=== PATIENT | male | born 1935 | race Caucasian/White ===

== ENCOUNTER → 2022-02-24 10:06 | Outpatient (CLI) | payer OTHER, SELFPAY ==
--- NOTE | ~2022-02-24 | XR_ITS ---
XR chest 2V DATE: 02/24/2022 10:33 INDICATION: Shortness of breath TECHNIQUE: PA and lateral views COMPARISON: 06/04/2018 two-view chest 09/05/2018 CT chest high resolution scan FINDINGS: Bilateral hyperinflation, consistent with COPD. There is mild right lower lobe infiltrate, atelectasis and/or scarring, improved mildly since 06/04/20 18. No interval active infiltrate or consolidation, pleural effusion or pulmonary vascular congestion or pneumothorax. There is thoracic aortic arch calcification. No hilar or mediastinal enlargement. Diffuse idiopathic skeletal hyperostosis of the thoracic spine IMPRESSION: Mild interval improvement of right lower lobe infiltrate, atelectasis and/or scarring Bilateral hyperinflation consistent with COPD Reviewed, dictated and finalized at location B. IMPRESSION: Mild interval improvement of right lower lobe infiltrate, atelectas is and/or scarring Bilateral hyperinflation consistent with COPD
== END ==
PROVIDERS: PCP Physician Assistant; Visit Provider Physician Assistant
DX: R06.02 Shortness of breath (principal); R91.8 Other nonspecific abnormal finding of lung field
CPT/HCPCS: 71046

== ENCOUNTER → 2022-03-03 10:45 | Outpatient (CLI) | payer OTHER, SELFPAY ==
--- NOTE | ~2022-03-03 | MR_ITS ---
EXAMINATION: MR brain/brain stem wo con DATE: 03/03/2022 11:20 INDICATION: Other symptoms and signs involving cognitive function. TECHNIQUE: Magnetic resonance imaging (MRI) of the brain and brainstem was performed without intraven ous contrast. COMPARISON: Head CT 09/20/2016 FINDINGS: There is diffuse brain volume loss. There are scattered areas of nonspecific increased T2-w eighted signal intensity in the cerebral white matter. The ventricles are normal in size. There is mu cosal thickening in the paranasal sinuses including complete opacification of the maxillary sinuses a nd right frontal sinus. There are likely changes of ocular lens replacement surgeries. IMPRESSION: 1. Normal aging brain. Reviewed, dictated and finalized at location A. IMPRESSION: 1. Normal aging brain.
== END ==
PROVIDERS: PCP Family Medicine Adolescent Medicine; Visit Provider Physician Assistant
DX: R41.89 Other symptoms and signs involving cognitive functions and awareness (principal)
CPT/HCPCS: 70551

== ENCOUNTER 2022-03-08 10:32 | Outpatient (CLI) | payer OTHER, SELFPAY ==
--- NOTE | ~2022-03-08 | XR_ITS ---
MODIFIED ESOPHAGRAM HISTORY: Dysphagia. TECHNIQUE: Modified barium esophagram was performed by speech pathologist under radiologist fluorosco pic guidance. This was recorded on tape. The exam was reviewed on 03/08/2022 12:38 CDT. The DAP for this procedure was 1.85 Gycm2. Fluoroscopy time is 1.9 minutes. FINDINGS: Lateral projection of the cervical spine demonstrates multiple ventral bulky osteophytes. There is normal swallowing function during oral stage. During pharyngeal stage there is reduced kelly ngeal elevation, reduced tongue base retraction, vallecular and piriform sinus residue as well as lar yngeal penetration and aspiration.. IMPRESSION: 1: Moderate laryngeal penetration with aspiration. 2: Please refer to speech pathologist report for additional detail. Reviewed, dictated and finalized at location A.
--- NOTE | 2022-03-09 16:18 | STOPEVAL ---
MODIFIED BARIUM SWALLOW EVALUATION: Thank you for referring Adeel Arellano to [facility].? Attending Provider: Maria Guadalupe Brewer PA-C Outpatient Past Medical History Past Medical History Source of Past Medical History Patient Evaluation Information Problem Diagnosis dysphagia Onset per pt 10-15 years ago Additional Evaluation Detail Pt reported his chief complaint is food gets stuck in his throat with choking. Pt reported it began 10-15 years ago. He reported he was previously tested via modified barium swallow here at [facility] 10-15 years ago;however, upon further review of pt's electronic record, it was noted the previous modified barium swallow was completed in 2017. At that time the pt exhibited the following: June Evaluation Results: Impressions: Oral preparatory stage disorders: none. Oral stage disorders: none. During the pharyngeal phase, the following disorders were noted: poor tongue base retraction, cervical osteophytes, & reduced laryngeal elevation. Cervical/ esophageal disorders were not present. Overall, trace laryngeal penetration was present. No aspiration occurred, but risk is present. Laryngeal sensitivity was present as indicated by multiple swallows but pt did not consistently clear throat or cough upon instances of the laryngeal penetration. Effective postures attempted during the study were: chin tucked (flexed) & head rotated left. Currently, pt states he continues to utilize the same postures while eating/drinking Subjective Information Pt was pleasant and alert but Query Text:As Reported By Patient/ appeared to exhibited Family difficulty providing accurate
== END 2022-03-08 10:33 | disposition home or self-care (01) ==
PROVIDERS: PCP Family Medicine Adolescent Medicine; Visit Provider Physician Assistant
DX: R13.10 Dysphagia, unspecified (principal)
CPT/HCPCS: 92611

== ENCOUNTER → 2022-06-08 09:04 | Outpatient (CLI) | payer OTHER, SELFPAY ==
--- NOTE | ~2022-06-08 | XR_ITS ---
XR knee LT 2V 06/08/2022 09:15 Indication: Left knee pain Procedure: 2 views left knee Comparison: No prior studies for comparison. Findings: No fracture or traumatic malalignment. No significant joint effusion. There is mild patello femoral compartment osteoarthritis. No foreign bodies. Impression: 1: No acute fracture. Reviewed, dictated and finalized at location A. Impression: 1: No acute fracture.
== END ==
PROVIDERS: PCP Family Medicine Adolescent Medicine; Visit Provider Physician Assistant
DX: M25.562 Pain in left knee (principal)
CPT/HCPCS: 73560

== ENCOUNTER 2022-10-14 10:30 | Outpatient (CLI) | payer OTHER, SELFPAY ==
--- NOTE | ~2022-10-14 | XR_ITS ---
EXAMINATION: BONE SURVEY/METASTATIC SURVEY DATE: 10/14/2022 INDICATION: Monoclonal gammopathy of undetermined significance TECHNIQUE: A skeletal survey was performed including AP views of the chest, abdomen and pelvis; AP an d lateral/lateral swimmers views of the cervical, thoracic and lumbar spine; AP and lateral views of the skull, and AP and lateral views of the appendicular skeleton excluding the hands and feet. COMPARISON: Chest radiograph dated 02/24/2022, chest CT dated 09/05/[address] abdomen and pelvis rosario ed 09/13/2012 FINDINGS: Small round lucent lesion in the left parietal bone seen only on the AP projection which can be seen dating back to CT dated 09/20/2016 with internal increased T1 signal on MRI dated 03/03/2022 most consi stent with a small hemangioma. No additional small higher less well-defined or more irregular shaped lucent calvarial lesion seen on the frontal projection. Correspond to combination of vascular channel s and arachnoid granulations on prior CT. No other suspicious lytic bone lesions in the axial or appe ndicular skeleton. A couple small chronic sclerotic bone islands in the pelvis and at the intratrochanteric right femur. Mild to moderate cervical and thoracic and mild lumbar spondylosis. There are bridging nearly bridgi ng osteophytes at multiple levels in the cervical and thoracic spine were consistent with diffuse idi opathic skeletal hyperostosis (DISH). Chronic mild anterior wedging at T7 and T8. Again seen are few small calcified pulmonary nodules in the bilateral upper lungs along with calcifie d left hilar and mediastinal lymph nodes consistent with old granulomatous disease. No other airspace opacities, pulmonary edema, pleural effusion or pneumothorax. Heart size is normal. Cholecystectomy clips in right upper quadrant. Prostatic calcifications. IMPRESSION: 1. No lytic bone lesions suspicious for multiple myeloma. Reviewed, dictated and finalized at location A. CLERK
== END 2022-10-14 10:31 | disposition home or self-care (01) ==
PROVIDERS: PCP Family Medicine Adolescent Medicine; Visit Provider Internal Medicine Hematology & Oncology
DX: D47.2 Monoclonal gammopathy (principal)
CPT/HCPCS: 77075

== ENCOUNTER → 2023-01-06 10:47 | Outpatient (CLI) | payer OTHER, SELFPAY ==
--- NOTE | ~2023-01-06 | CT_ITS ---
CT of the Abdomen and Pelvis: Indication: Abdominal pain, weight loss Technique: 2.5 mm axial scans were obtained through the abdomen and pelvis following intravenous adm inistration of 100 cc of Omnipaque 350. Dose reduction technique was used on this scan by utilizing a utomated exposure control and iterative reconstruction technique. The dose-length product (DLP) was 6 35.69 mGy-cm. COMPARISON: 09/13/2012 Findings: There are several peripheral right basilar pulmonary nodules, largest measuring 1.1 cm (axi al image 2), with nearby right basilar scarring.. The liver, spleen, pancreas, adrenals and kidneys are within normal limits. Cholecystectomy clips not ed. There are atherosclerotic calcifications of the aorta. No lymphadenopathy. No bowel obstruction or bowel wall thickening. There is no evidence to suggest acute appendicitis. Images through the pelvis were performed. Urinary bladder unremarkable. Prostate gland is enlarged. N o ascites. Impression: Several right basilar pulmonary nodules, largest measuring 1.1 cm, with adjacent scarring. This could reflect postinflammatory change or scarring, however these nodules are indeterminate. Based upon Fle ischner Society criteria, given a 1.1 cm nodule, consider 3 month follow-up CT versus PET/CT or attem pted tissue sampling. Also consider dedicated chest CT to more completely evaluate the thorax. Reviewed, dictated and finalized at location M. Impression: Several right basilar pulmonary nodules, largest measuring 1.1 cm, with adjacen t scarring. This could reflect postinflammatory change or scarring, however the se nodules are indeterminate. Based upon Fleischner Society criteria, given a 1 .1 cm nodule, consider 3 month follow-up CT versus PET/CT or attempted tissue s ampling. Also consider dedicated chest CT to more completely evaluate the thora x.
[2023-01-06 11:07] LABS: Estimated Glomerular Filt Rate > 60
== END ==
PROVIDERS: PCP Family Medicine Adolescent Medicine; Visit Provider Physician Assistant
DX: R10.13 Epigastric pain (principal); R63.4 Abnormal weight loss; R91.8 Other nonspecific abnormal finding of lung field
CPT/HCPCS: 74177; Q9967

== ENCOUNTER 2023-02-03 02:44 | Day surgery (SDC) | payer OTHER, SELFPAY ==
[2023-01-25 14:15] VITALS: BMI 25.1
[2023-02-03 09:25] VITALS: BP 135/68; PULSE 65; RESP 18; TEMP 36.6; O2SAT 99; BMI 25.5
[2023-02-03] MEDS: LACTATED RINGERS 1,000 ML 150 ML IV CONT (09:57)
[2023-02-03 10:01] LABS: Glucose Point of Care 128 mg/dl (65-105)
--- NOTE | 2023-02-03 10:11 | WPDANESEPPF ---
Anes - Initial Pre Proc Eval Procedure: Operation Date: 02/03/23 10:45 Proposed Procedures p Esophagogastroduodenoscopy - Eitan Apodaca MD Date/Time: 02/03/23 10:11 Surgeon: Eitan Apodaca MD Pre Op Diagnosis: dysphagia, weightloss Patient Data Age: 87 Gender: M Height: 1.75 m Weight: 78.5 kg Last Vital Signs Temp 97.8 F 02/03/23 09:25 Pulse 65 02/03/23 09:25 Resp 18 02/03/23 09:25 BP 135/68 02/03/23 09:25 Pulse Ox 99 02/03/23 09:25 O2 Del Method Room Air 02/03/23 09:25 Allergies Allergy/AdvReac Type Severity Reaction Status Date / Time quinidine Allergy Unknown Unknown Verified 01/25/23 14:13 quinine Allergy Unknown Unknown Verified 01/25/23 14:13 donepezil AdvReac Intermediate Other Verified 01/25/23 14:13 memantine AdvReac Intermediate Drowsy Verified 01/25/23 14:13 [id number] Reductase AdvReac Mild leg pains Verified 01/25/23 14:13 Inhibitor Home Medications Medication Instructions Recorded Confirmed Type albuterol sulfate 2.5 mg/3 mL 2.5 mg (3 mL) inhalation QID PRN 06/10/22 01/25/23 Rx (0.083 %) solution for nebulization shortness of breath or wheezing #360 mL lisinopril 20 mg tablet See Rx Instructions .Route 07/11/22 01/25/23 Rx .COMPLEX #90 tabs propranolol 40 mg tablet 80 mg PO DAILY #180 tabs 09/16/22 01/25/23 Rx spironolactone 25 mg tablet 25 mg PO DAILY #90 tabs 09/19/22 01/25/23 Rx metformin 500 mg tablet 1,000 mg PO BID #360 tabs 11/14/22 01/25/23 Rx ipratropium bromide 42 mcg (0.06 See Rx Instructions .Route 11/24/22 01/25/23 Rx %) nasal spray .COMPLEX #15 mL glimepiride 2 mg tablet See Rx Instructions .Route 12/12/22 01/25/23 Rx .COMPLEX #90 tabs gabapentin 300 mg capsule See Rx Instructions .Route 12/21/22 01/25/23 Rx .COMPLEX #360 caps albuterol sulfate 90 mcg/actuation 2 inh inhalation Q4H PRN shortness 01/08/23 01/25/23 Rx aerosol inhaler (Ventolin HFA) of breath or wheezing #18 grams diltiazem HCl 90 mg tablet 90 mg PO BID #180 tabs 01/08/23 01/25/23 Rx famotidine 10 mg tablet 10 mg PO DAILY 01/11/23 01/25/23 History pantoprazole 40 mg tablet,delayed 40 mg PO BID 01/25/23 01/25/23 History release (Protonix) Laboratory Tests 02/03/23 09:48 POC Capillary Glucose 128 mg/dl H mg/dl (65-105) Patient hx anesthesia problems: none Family hx anesthesia problems: none Results Review: All pre-operative results and documents have been reviewed as part of the pre-operative evaluation. [facility] Past Medical History Medical History (Updated 01/11/23 @ 16:15 by HUI Vogel) Abdominal pain Change in voice Diarrhea Dysphagia TIA (transient ischemic attack) Surgical History Surgical History History of back surgery X-2 History of hernia repair Status post arthroscopic surgery of left knee Family History Family History Sibling Hypertension Acute myocardial infarction Mother Patient's mother is , Onset Age: 57 Heart disease CHF (congestive heart failure) Family history of obesity Father Dementia Cerebrovascular accident Other Diabetes mellitus Social History Social History Years smoked: 15 Smoking status: Former smoker Tobacco type: cigarettes Second hand tobacco smoke exposure: No Smoking end date: 10/16/69 Alcohol intake: current Drinks per week: 7 Substance use: never Substance use type: does not use Living arrangements: with family Occupation/Education: retired Gender identity (if verbalized by the patient): Male Sexual Orientation (if Verbalized by the Patient): Straight or Heterosexual Spiritual care concerns: No Agree to blood products: Yes Anes - Eval Final PreProcedure Day of Procedure 04/21/23 10:11 Patient weight: normal Heart: regul
--- NOTE | 2023-02-03 10:28 | P.HPUP_ITS ---
History and Physical Update Update Date/Time: 02/03/23 10:28 Patient continues to complain of right throat discomfort along with difficulty swallowing. If EGD negative then ENT evaluation would be indicated. History and Physical has been reviewed, including an updated exam of the patie nt. There are NO changes in the patient's condition. Risks, benefits, and alternatives have been discussed and questions answered. Patient agrees to proceed with procedure.
[2023-02-03 10:42] VITALS: BP 159/76; PULSE 66; RESP 20; O2SAT 100
[2023-02-03 10:52] VITALS: BP 142/74; PULSE 64; RESP 12; O2SAT 100
[2023-02-03 11:02] VITALS: BP 129/72; PULSE 67; RESP 14; O2SAT 100
== END 2023-02-03 11:22 | disposition home or self-care (01) ==
PROVIDERS: PCP Physician Assistant; Visit Provider Internal Medicine Gastroenterology
PROC: 0DJ08ZZ Inspection of Upper Intestinal Tract, Via Natural or Artificial Opening Endoscopic (ICD-10-PCS; CPT 43235; principal; 2023-02-03 10:45)
DX: Q39.4 Esophageal web (principal); K21.9 Gastro-esophageal reflux disease without esophagitis; R63.4 Abnormal weight loss; R10.9 Unspecified abdominal pain; K58.0 Irritable bowel syndrome with diarrhea; I10 Essential (primary) hypertension; E11.9 Type 2 diabetes mellitus without complications; F03.90 Unspecified dementia, unspecified severity, without behavioral disturbance, psychotic disturbance, mood disturbance, and anxiety; Z79.51 Long term (current) use of inhaled steroids; Z79.84 Long term (current) use of oral hypoglycemic drugs; Z86.73 Personal history of transient ischemic attack (TIA), and cerebral infarction without residual deficits; Z87.891 Personal history of nicotine dependence; Z68.25 Body mass index [BMI] 25.0-25.9, adult
CPT/HCPCS: 43450; 43235; 82948; J2704; J7120

== ENCOUNTER → 2023-04-21 10:39 | Outpatient (CLI) | payer OTHER, SELFPAY ==
--- NOTE | ~2023-04-21 | CT_ITS ---
EXAMINATION:CT diagnostic chest w con DATE: 04/21/2023 11:21 INDICATION: Lung nodule. TECHNIQUE: Computed tomography (CT) of the chest was performed with 75 mL Omnipaque 350 intravenous c ontrast. Automated exposure control and iterative reconstruction technique were employed. The dose-le ngth product (DLP) was 296.67 mGy-cm. COMPARISON: Chest CT 09/05/2018, CT abdomen and pelvis 01/02/2023 FINDINGS: There is mild scarring at the lung apices. Calcified bilateral pulmonary nodules and calcif ied mediastinal lymph nodes are consistent with old granulomatous disease. There is minimal atelectas is bilaterally. There are a few scattered nodules in right lung measuring up to 10 mm. There is mucou s plugging in basilar right lower lobe. No pleural effusion. The heart size is normal. There are lizzy nary artery calcifications. No pericardial effusion. There is bilateral gynecomastia. Calcifications in the spleen are consistent with old granulomatous disease. There are changes of cholecystectomy. Th ere are bridging endplate osteophytes at multiple levels in the spine, consistent with diffuse idiopa thic skeletal hyperostosis (DISH). IMPRESSION: 1. Chronic right lung nodules with improvement from 09/05/2018, consistent with granulomatous disease . Reviewed, dictated and finalized at location A. IMPRESSION: 1. Chronic right lung nodules with improvement from 09/05/2018, consistent with granulomatous disease.
[2023-04-21 11:03] LABS: Estimated Glomerular Filt Rate > 60
== END ==
PROVIDERS: PCP Internal Medicine Hematology & Oncology; Visit Provider Internal Medicine Hematology & Oncology
DX: R91.1 Solitary pulmonary nodule (principal); R91.8 Other nonspecific abnormal finding of lung field
CPT/HCPCS: 71260; Q9967

== ENCOUNTER → 2023-04-21 10:43 | Outpatient (CLI) | payer OTHER, SELFPAY ==
--- NOTE | ~2023-04-21 | XR_ITS ---
EXAMINATION: XR hip LT min 2V DATE: 04/21/2023 11:21 INDICATION: Left hip pain TECHNIQUE: Anteroposterior and frog-leg lateral views of the left hip were obtained. COMPARISON: None. FINDINGS: Alignment is normal. No fracture or suspected avascular necrosis. Subtle chondrocalcinosis along the left femoral head. Mild left hip osteoarthritis. Ankylosis across portions of the left sacroiliac pinky nt. Prostatic calcifications. IMPRESSION: 1. Mild chondrocalcinosis and mild osteoarthritis at the left hip. Reviewed, dictated and finalized at location B.
== END ==
PROVIDERS: PCP Family Medicine Adolescent Medicine; Visit Provider Nurse Practitioner Family
DX: M16.12 Unilateral primary osteoarthritis, left hip (principal)
CPT/HCPCS: 73502

== ENCOUNTER 2023-05-02 14:29 | Outpatient (CLI) | payer OTHER, SELFPAY ==
[2023-05-02 14:39] LABS: Basophils Percent Auto 0.3 % (0.2-1.2); Eosinophils Absolute Auto 0.1 K/mm3 (0-0.3); Eosinophils Percent Auto 1.4 % (0-4.4); Hematocrit 37.5 % (42.0-52.0); Hemoglobin 12.8 g/dL (14.0-18.0); Immature Granulocyte Absolute 0.05 K/mm3 (0.00-0.031); Immature Granulocyte Percent A 0.5 % (0-0.5); Lymphocytes Absolute Auto 1.38 K/mm3 (0.9-3.2); Lymphocytes Percent Auto 14.5 % (18.3-44.2); Mean Corpuscular HGB Conc 34.1 g/dl (32-36); Mean Corpuscular Hemoglobin 32.7 pg (26-34); Mean Corpuscular Volume 95.7 fl (80-100); Mean Platelet Volume 9.4 fl (7.4-10.4); Monocytes Absolute Auto 0.8 K/mm3 (0.1-0.6); Monocytes Percent Auto 8.5 % (2.6-8.5); Neutrophils Absolute Auto 7.1 K/mm3 (1.3-6.7); Neutrophils Percent Auto 74.8 % (45.5-73.1); Platelet Count Result 263 k/mm3 (150-375); Red Blood Count 3.92 M/mm3 (4.6-6.20); Red Cell Distribution Width 12.2 % (11.5-14.5); White Blood Count 9.5 K/mm3 (4.5-10.0)
[2023-05-02 14:44] LABS: Blood Urea Nitrogen 22 mg/dL (8-26); Carbon Dioxide 27 mmol/L (22-30); Chloride 93 mmol/L (98-109); Estimated Glomerular Filt Rate > 60; Glucose 165 mg/dL (70-105); Ionized Calcium (POC) 1.22 mmol/L (1.11-1.31); Potassium 4.7 mmol/L (3.5-4.9); Sodium 131 mmol/L (138-146)
[2023-05-02 16:46] LABS: Alanine Aminotransferase 24 U/L (6-50); Albumin Level 4.7 g/dL (3.5-5.1); Alkaline Phosphatase 77 U/L (38-126); Anion Gap 11 mmol/L (8-16); Aspartate Amino Transferase 23 U/L (17-59); Bilirubin,Total 0.4 mg/dL (0.2-1.3); Blood Urea Nitrogen 21 mg/dL (9-20); Calcium 9.8 mg/dL (8.4-10.2); Carbon Dioxide 26 mmol/L (22-30); Chloride 94 mmol/L (98-107); Estimated Glomerular Filt Rate > 60; Glucose 162 mg/dL (65-110); Potassium 4.9 mmol/L (3.4-5.0); Sodium 131 mmol/L (137-145)
== END 2023-05-02 14:30 | disposition home or self-care (01) ==
LOC: ANHLAB 14:30
PROVIDERS: PCP Family Medicine Adolescent Medicine; Visit Provider Internal Medicine Hematology & Oncology
DX: D47.2 Monoclonal gammopathy (principal)
CPT/HCPCS: 36415; 80047; 80053; 85025

== ENCOUNTER → 2023-08-08 12:53 | Outpatient (CLI) | payer OTHER, SELFPAY ==
--- NOTE | ~2023-08-08 | MR_ITS ---
EXAMINATION: MR brain/brain stem wo con DATE: 08/08/2023 13:29 INDICATION: Vascular dementia, unspecified severity. Headache. Dizziness. TECHNIQUE: Magnetic resonance imaging (MRI) of the brain and brainstem was performed without intraven ous contrast. COMPARISON: Brain MRI 03/03/2022 FINDINGS: There are scattered areas of nonspecific increased T2-weighted signal intensity in the cere bral white matter, which is within normal limits for the patient's age. There is no intracranial hemo rrhage, acute infarction, or abnormal intracranial mass lesion. The ventricles are normal in size. Ag ain seen is extensive opacification of the paranasal sinuses. There are likely changes of ocular lens replacement surgeries. The mastoid air cells are normal. IMPRESSION: 1. Normal aging brain. Reviewed, dictated and finalized at location E. IMPRESSION: 1. Normal aging brain.
== END ==
PROVIDERS: PCP Family Medicine Adolescent Medicine; Visit Provider Family Medicine Adolescent Medicine
DX: R51.9 Headache, unspecified (principal); F01.50 Vascular dementia, unspecified severity, without behavioral disturbance, psychotic disturbance, mood disturbance, and anxiety
CPT/HCPCS: 70551

== ENCOUNTER 2023-11-02 14:32 | Outpatient (CLI) | payer OTHER, SELFPAY ==
[2023-11-02 14:47] LABS: Basophils Percent Auto 0.4 % (0.2-1.2); Eosinophils Absolute Auto 0.3 K/mm3 (0-0.3); Eosinophils Percent Auto 2.9 % (0-4.4); Hematocrit 39.3 % (42.0-52.0); Hemoglobin 13.2 g/dL (14.0-18.0); Immature Granulocyte Absolute 0.03 K/mm3 (0.00-0.031); Immature Granulocyte Percent A 0.4 % (0-0.5); Lymphocytes Absolute Auto 1.36 K/mm3 (0.9-3.2); Mean Corpuscular HGB Conc 33.6 g/dl (32-36); Mean Corpuscular Hemoglobin 32.4 pg (26-34); Mean Corpuscular Volume 96.6 fl (80-100); Mean Platelet Volume 9.9 fl (7.4-10.4); Monocytes Absolute Auto 0.8 K/mm3 (0.1-0.6); Monocytes Percent Auto 9.3 % (2.6-8.5); Platelet Count Result 265 k/mm3 (150-375); Red Blood Count 4.07 M/mm3 (4.6-6.20); White Blood Count 8.5 K/mm3 (4.5-10.0)
[2023-11-02 14:52] LABS: Blood Urea Nitrogen 19 mg/dL (8-26); Carbon Dioxide 31 mmol/L (22-30); Chloride 97 mmol/L (98-109); Estimated Glomerular Filt Rate > 60; Glucose 131 mg/dL (70-105); Ionized Calcium (POC) 1.15 mmol/L (1.11-1.31); Potassium 4.8 mmol/L (3.5-4.9); Sodium 136 mmol/L (138-146)
[2023-11-02 16:37] LABS: Alanine Aminotransferase 20 U/L (6-50); Albumin Level 4.2 g/dL (3.5-5.1); Alkaline Phosphatase 69 U/L (38-126); Anion Gap 9 mmol/L (8-16); Aspartate Amino Transferase 23 U/L (17-59); Bilirubin,Total 0.4 mg/dL (0.2-1.3); Blood Urea Nitrogen 19 mg/dL (9-20); Carbon Dioxide 29 mmol/L (22-30); Chloride 97 mmol/L (98-107); Estimated Glomerular Filt Rate > 60; Glucose 126 mg/dL (65-110); Potassium 4.8 mmol/L (3.4-5.0); Sodium 135 mmol/L (137-145)
== END 2023-11-02 14:33 | disposition home or self-care (01) ==
LOC: ANHLAB 14:34
PROVIDERS: PCP Family Medicine Adolescent Medicine; Visit Provider Internal Medicine Hematology & Oncology
DX: D47.2 Monoclonal gammopathy (principal)
CPT/HCPCS: 36415; 80047; 80053; 85025

== ENCOUNTER 2024-03-01 13:51 | Inpatient (IN) | payer OTHER, SELFPAY ==
[2024-03-01] VITALS (9 sets, daily range): BP systolic 101–125; BP diastolic 42–67; PULSE 43–69; RESP 14–18; TEMP 36.3–36.6; O2SAT 94–100
--- NOTE | ~2024-03-01 | XR_ITS ---
EXAMINATION: XR chest 1V portable DATE: 03/01/2024 14:26 INDICATION: Bradycardia TECHNIQUE: frontal view of the chest was obtained. COMPARISON: Chest CT dated 04/21/2023 FINDINGS: Mild linear discoid atelectasis at the lateral right midlung zone and at the left costophrenic angle. No other airspace opacities, pulmonary edema, pleural effusion or pneumothorax. The cardiomediastina l silhouette is normal. Cholecystectomy clips in right upper quadrant. IMPRESSION: 1. Mild scattered bilateral discoid atelectasis. No other acute cardiopulmonary disease. Reviewed, dictated and finalized at location A.
--- NOTE | ~2024-03-01 | XR_ITS ---
EXAMINATION: XR barium swallow modified DATE: 03/04/2024 08:56 INDICATION: Dysphagia. TECHNIQUE: The patient was given barium-containing material of multiple consistencies to swallow by t he speech pathologist while I performed fluoroscopy. Fluoroscopy exposure time was 1.7 minutes. The n umber of fluoroscopy images saved to the PACS was 1. Dose-area product was 1.328 Gy-cm^2. FINDINGS: There is reduced laryngeal elevation, reduced tongue base retraction, vallecular residue, pyriform si nus residue, and laryngeal penetration. IMPRESSION: 1. Laryngeal penetration. 2. Please refer to the speech therapy report for recommendations. Reviewed, dictated and finalized at location A.
--- NOTE | ~2024-03-01 | CT_ITS ---
EXAMINATION: CT brain wo con DATE: 03/01/2024 21:13 INDICATION: Altered mental status. TECHNIQUE: Computed tomography (CT) of the head was performed without intravenous contrast. The mA wa s adjusted according to patient size. Iterative reconstruction technique was employed. The dose-lengt h product was 605.33 mGy-cm. 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 There are scattered areas of low atten uation in the cerebral white matter, which is within normal limits for the patient's age. There is no intracranial hemorrhage, acute infarction, or abnormal intracranial mass lesion. The ventricles are normal in size. There is extensive mucosal thickening in the paranasal sinuses with sclerosis of the sinus [place], consistent with chronic sinusitis. There are likely changes of ocular lens replacement s urgeries. The mastoid air cells are normal. IMPRESSION: 1. 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 2. Chronic sinusitis. Reviewed, dictated and finalized at location E.
--- NOTE | 2024-03-01 14:01 | ECG_ITS ---
SEE SCANNED COPY FOR CONFIRMED REPORT MTDD
[2024-03-01 14:18] LABS: Basophils Percent Auto 0.2 % (0.2-1.2); Eosinophils Absolute Auto 0.1 K/mm3 (0-0.3); Eosinophils Percent Auto 0.8 % (0-4.4); Hematocrit 33.4 % (42.0-52.0); Hemoglobin 11.5 g/dL (14.0-18.0); Immature Granulocyte Absolute 0.08 K/mm3 (0.00-0.031); Immature Granulocyte Percent A 0.6 % (0-0.5); Lymphocytes Absolute Auto 0.86 K/mm3 (0.9-3.2); Lymphocytes Percent Auto 6.6 % (18.3-44.2); Mean Corpuscular HGB Conc 34.4 g/dl (32-36); Mean Corpuscular Hemoglobin 32.5 pg (26-34); Mean Corpuscular Volume 94.4 fl (80-100); Monocytes Percent Auto 7.3 % (2.6-8.5); Neutrophils Absolute Auto 10.9 K/mm3 (1.3-6.7); Neutrophils Percent Auto 84.5 % (45.5-73.1); Platelet Count Result 247 k/mm3 (150-375); Red Blood Count 3.54 M/mm3 (4.6-6.20); Red Cell Distribution Width 11.8 % (11.5-14.5)
[2024-03-01 14:22] LABS: Lactic Acid Reflex 2.2 mmol/L (0.7-2.0)
[2024-03-01] MEDS: LACTATED RINGERS 1,000 ML 999 ML IV CONT (14:40)
[2024-03-01 14:48] LABS: Alanine Aminotransferase 197 U/L (6-50); Albumin Level 4.2 g/dL (3.5-5.1); Alkaline Phosphatase 90 U/L (38-126); Anion Gap 10 mmol/L (4-12); Aspartate Amino Transferase 167 U/L (17-59); Bilirubin,Total 0.8 mg/dL (0.2-1.3); Blood Urea Nitrogen 36 mg/dL (9-20); Calcium 9.3 mg/dL (8.4-10.2); Carbon Dioxide 21 mmol/L (22-30); Chloride 89 mmol/L (98-107); Estimated Glomerular Filt Rate 48; Glucose 107 mg/dL (65-110); Potassium 6.2 mmol/L (3.4-5.0); Sodium 120 mmol/L (137-145)
[2024-03-01] MEDS: INSULIN HUMAN REGULAR (*BKC) 100 UNITS/ML 10 UNITS IV PUSH (15:01)
[2024-03-01] MEDS: CALCIUM GLUCONATE 1,000 MG/10 ML VIAL 2000 MG IV PUSH (15:12)
[2024-03-01] MEDS: DEXTROSE 50% 25 GM/50 ML SYRINGE IV PUSH ×2 (15:13→18:07)
[2024-03-01] MEDS: SODIUM BICARBONATE 8.4% 50 MEQ/50 ML SYRINGE IV PUSH (15:13)
[2024-03-01] MEDS: SODIUM ZIRCONIUM CYCLOSILICATE 10 GM POWD.PACK PO (15:56)
[2024-03-01 16:48] LABS: Appearance Urine Clear (Clear); Bilirubin Urine Negative (Negative); Blood Urine Negative (Negative); Color Urine Yellow (Yellow); Glucose Urine UA Negative (Negative); Ketones Urine Negative (Negative); Leukocyte Esterase Ur Negative LEU/UL (Negative); Nitrate Urine Negative (Negative); Protein Urine Negative (Negative); Specific Grav Ur 1.006 (1.001-1.035); Urobilinogen Urine 0.2 mg/dL (<2.0)
[2024-03-01 16:52] LABS: Add Urine Microscopic? NO
[2024-03-01 17:11] LABS: Troponin I < 0.012 ng/mL (0.000-0.034)
[2024-03-01 17:12] LABS: Reflex Lactic Acid Yes or No Add Lactic
[2024-03-01 17:57] LABS: Lactic Acid 2.1 mmol/L (0.7-2.0)
--- NOTE | 2024-03-01 18:01 | ED.AMS ---
HPI - Altered Mental Status General Chief Complaint: Altered Mental Status Stated Complaint: AMS Time Seen by Provider: 03/01/24 14:00 History of Present Illness HPI narrative: Patient presenting with altered mental status, his came home and saw that he was unresponsive, she immediately called EMS. When they arrived his heart rate was 30 and they brought him here after putting pacers on him. Related Data Home Medications Medication Instructions Recorded Confirmed famotidine 10 mg tablet 10 mg PO DAILY 01/11/23 02/02/24 pantoprazole 40 mg tablet,delayed 40 mg PO BID 01/25/23 02/02/24 release (Protonix) aspirin 81 mg tablet,delayed 81 mg PO DAILY 07/04/23 02/02/24 release Allergies Allergy/AdvReac Type Severity Reaction Status Date / Time quinidine Allergy Unknown Unknown Verified 02/26/24 13:23 donepezil AdvReac Intermediate Other Verified 02/26/24 13:23 memantine AdvReac Intermediate Drowsy Verified 02/26/24 13:23 [id number] Reductase AdvReac Mild leg pains Verified 02/26/24 13:23 Inhibitor Review of Systems Review of Systems: ROS unobtainable: Yes unobtainable due to mental status PMFSH Past Medical History Medical History Abdominal pain Change in voice Diarrhea Dysphagia TIA (transient ischemic attack) Surgical History Surgical History History of back surgery X-2 History of hernia repair Status post arthroscopic surgery of left knee Family History Family History Sibling Hypertension Acute myocardial infarction Mother Patient's mother is , Onset Age: 57 Heart disease CHF (congestive heart failure) Family history of obesity Father Dementia Cerebrovascular accident Other Diabetes mellitus Social History Social History Social History: Caffeine-coffee Years smoked: 15 Smoking status: Former smoker Tobacco type: cigarettes Second hand tobacco smoke exposure: No Smoking end date: 10/16/69 Alcohol intake: current Drinks per week: 7 Substance use: never Substance use type: does not use Lack of Transportation: No Lack of Food: Never True Current Housing: I Have Housing Concerned About Future Housing: Decline to Answer Difficulty Paying Gas/Electric Bills: Decline to Answer Difficulty Paying for Meds: Decline to Answer Currently Unemployed: Decline to Answer Education: Master's Degree or Higher Difficulty w/ Childcare or Family Care: No Living arrangements: with family Occupation/Education: retired Gender identity (if verbalized by the patient): Male Sexual Orientation (if Verbalized by the Patient): Straight or Heterosexual Spiritual care concerns: No Agree to blood products: Yes Exam Narrative: EXAMINATION OF ORGAN SYSTEMS/BODY AREAS: Constitutional: Vital signs per nursing GENERAL: Staring at me and slightly babbling HEAD: Normal with no signs of head trauma. EYES: EOMI, conjunctiva normal ENT: Hearing grossly intact LUNGS: Nonlabored breathing. HEART: Irregular and slow ABD: [Soft], [nontender to palpation] EXT: Normal range of motion SKIN: [No rashes or lesions.] NEURO: [Alert. No gross focal sensory or strength deficits.] Course Vital Signs Vital signs: Vital Signs Temperature 97.8 F 03/01/24 13:41 Pulse Rate 43 L 03/01/24 13:41 Respiratory Rate 18 03/01/24 13:41 Blood Pressure 107/62 03/01/24 13:41 Pulse Oximetry 100 03/01/24 13:41 Oxygen Delivery Room Air 03/01/24 13:41 Temperature 97.8 F 03/01/24 13:41 Pulse Rate 66 03/01/24 16:31 Respiratory Rate 14 03/01/24 16:31 Blood Pressure 117/44 L 03/01/24 16:31 Pulse Oximetry 100 03/01/24 16:31 Oxygen Delivery Room Air 03/01/24 14:09 MDM - Alter
[2024-03-01 18:03] LABS: Anion Gap 5 mmol/L (4-12); Blood Urea Nitrogen 32 mg/dL (9-20); Calcium 9.6 mg/dL (8.4-10.2); Carbon Dioxide 26 mmol/L (22-30); Chloride 93 mmol/L (98-107); Estimated Glomerular Filt Rate > 60; Glucose 51 mg/dL (65-110); Sodium 124 mmol/L (137-145)
[2024-03-01 19:27] LABS: Glucose Point of Care 121 mg/dl (65-105)
[2024-03-01 21:27] LABS: Glucose Point of Care 74 mg/dl (65-105)
[2024-03-01] MEDS: DEXTROSE 5%/0.45% SOD CHL 1,000 ML 100 ML IV CONT (21:32)
[2024-03-01 22:22] LABS: Glucose Point of Care 70 mg/dl (65-105)
[2024-03-01 22:49] LABS: Sodium 127 mmol/L (137-145)
[2024-03-01 23:12] LABS: Troponin I < 0.012 ng/mL (0.000-0.034)
--- NOTE | 2024-03-01 23:39 | PM.IMHP ---
H&P: HPI History of Present Illness Date/Time: 03/01/24 22:30 Chief Complaint: Unresponsive Narrative: 88-year-old male with a past medical history of dementia, TIA, peripheral neuropathy type 2 diabetes mellitus, essential hypertension, grade 1 diastolic dysfunction among other comorbidities who presented to the ER from home via EMS due to unresponsive episode. Despite having history of dementia patient is fair historian and his currently alert oriented x3. He gets some details regarding past events confused. He reports that he was sitting in his recliner home when his came to check on him he was unresponsive. He remembers his shaking him awake. His heart rate in the field was in the 30s and EMS and a place the patient on pacemaker. On arrival to the ER patient was still bradycardic with heart rate in the 30s. He was found to be mildly hyperkalemic and in acute renal failure. He received dextrose, calcium, insulin, and Lokelma with improvement and his heart rate and mentation. However he had an became hypoglycemic and required additional D50. The patient reports that he has been having intermittent episodes of feeling extremely fatigued. He usually feels good 1 day and feels bad the next. He admits to significant weight loss over the last couple of years. He reports that he has had essentially no sense of taste for several years. He has had decreased urine output with concentrated urine. He has chronic urinary frequency but denies dysuria. He has not had any fevers or chills. He does report his chronic neuropathic symptoms in his feet. He has been having multiple episodes of lightheadedness at home and what sounds like near-syncope. He reports that he falls sometimes a couple of times a week but is usually able to get himself up off the floor by using pieces of furniture. Patient was recently started on antibiotics 02/26/2024 due to maxillary and forehead discomfort thought to be due to sinusitis. This is a 2nd course of antibiotic therapy for similar symptoms in the last 2 months. He has not had any fevers or chills. Review of Systems Review of Systems: 12 systems were reviewed with pertinent positives and negatives per HPI. Except as documented in the HPI, all other systems were reviewed and are negative. [facility] Past Medical History Medical History (Updated 03/02/24 @ 16:26 by Sally Leal MD) Asymptomatic bilateral carotid artery stenosis Atherosclerosis of [place] arteries of extremities with intermittent claudication, bilateral legs Bronchiectasis Dementia Dysphagia Essential (primary) hypertension Gastro-esophageal reflux disease without esophagitis Hypoparathyroidism Irritable bowel syndrome with diarrhea Mixed hyperlipidemia ISMA (obstructive sleep apnea) Does not use CPAP TIA (transient ischemic attack) Type 2 diabetes mellitus with diabetic autonomic (poly)neuropathy Surgical History Surgical History History of back surgery X-2 History of hernia repair Hx of cholecystectomy Status post arthroscopic surgery of left knee Family History Family History Sibling Hypertension Acute myocardial infarction Mother Patient's mother is , Onset Age: 57 Heart disease CHF (congestive heart failure) Family history of obesity Father Dementia Cerebrovascular accident Other Diabetes mellitus Social History Social History (Updated 03/02/24 @ 08:54 by Lilli Barnes DO) Social History: Patient lives with his of over 60 years. They raised 3 sons. He was drafted into the [employer] answer for 2 years in the 1950s. He smoked a pack of cigarettes per day for about 25 years but quit in the 1980s. He denies any significant alcohol use or illicit substance use. Code status: No CPR, no intubation, patient would be okay with synchronized cardioversion or cardiove
[2024-03-02] VITALS (19 sets, daily range): BP systolic 103–157; BP diastolic 43–78; PULSE 45–80; RESP 16–20; TEMP 36.2–37; O2SAT 97–100
[2024-03-02] MEDS: DEXTROSE 5% 1,000 ML 1,000 ML 100 ML IV CONT (00:36)
[2024-03-02 02:30] LABS: Glucose Point of Care 104 mg/dl (65-105)
[2024-03-02 04:37] LABS: Mean Corpuscular HGB Conc 34.3 g/dl (32-36); Mean Corpuscular Hemoglobin 32.3 pg (26-34); Mean Corpuscular Volume 94.1 fl (80-100); Mean Platelet Volume 9.9 fl (7.4-10.4); Platelet Count Result 211 k/mm3 (150-375); Red Blood Count 3.72 M/mm3 (4.6-6.20); White Blood Count 10.4 K/mm3 (4.5-10.0)
[2024-03-02 04:48] LABS: Alanine Aminotransferase 154 U/L (6-50); Alkaline Phosphatase 76 U/L (38-126); Anion Gap 7 mmol/L (4-12); Aspartate Amino Transferase 87 U/L (17-59); Bilirubin,Total 0.5 mg/dL (0.2-1.3); Blood Urea Nitrogen 22 mg/dL (9-20); Calcium 9.4 mg/dL (8.4-10.2); Carbon Dioxide 26 mmol/L (22-30); Chloride 97 mmol/L (98-107); Estimated Glomerular Filt Rate > 60; Glucose 113 mg/dL (65-110); Potassium 4.5 mmol/L (3.4-5.0); Sodium 130 mmol/L (137-145)
--- NOTE | 2024-03-02 06:19 | ADMGEN ---
This patient, Adeel Arellano, was admitted to IMU Room 211-01 on 03/01/24 at 2200. Patient/family oriented to hospital policies and general routines including ID bracelet, bed and alarms, visiting hours, pain management, procedures, bathroom and other care routines, personal items, smoking policy, room service/diet, and visiting hours. Information on how to activate the Rapid Response Team has been discussed. Patient/Family are encouraged to report perceived risks to care and to ask questions if they do not understand what they are told or what they should do.
[2024-03-02] MEDS: DEXTROSE 5% IN WATER 500 ML 250 ML IV CONT (07:57)
[2024-03-02 08:05] LABS: Glucose Point of Care 143 mg/dl (65-105)
[2024-03-02 09:34] LABS: Sodium 129 mmol/L (137-145)
[2024-03-02] MEDS: GABAPENTIN 300 MG CAPSULE 600 MG PO ×2 (09:56→17:29)
[2024-03-02] MEDS: AMOXICILLIN/CLAVULANATE K 875-125 MG TAB 1 TABLET PO ×2 (09:56→17:29)
[2024-03-02] MEDS: MECLIZINE HCL 25 MG TABLET PO (09:57)
[2024-03-02] MEDS: dilTIAZem HCL 60 MG TABLET PO (09:58)
[2024-03-02] MEDS: ASPIRIN 81 MG ENTERIC TABLET PO (10:00)
[2024-03-02] MEDS: CLOPIDOGREL BISULFATE 75 MG TABLET PO (10:01)
[2024-03-02] MEDS: PROPRANOLOL HCL 40 MG TABLET PO (10:01)
[2024-03-02] MEDS: metFORMIN HCL 500 MG TABLET 1000 MG PO ×2 (10:02→17:29)
[2024-03-02] MEDS: dilTIAZem HCL 30 MG TABLET PO (10:05)
[2024-03-02] MEDS: HEPARIN SODIUM 5,000 UNITS/ML VIAL 5000 UNITS SUB-Q ×2 (10:06→20:39)
[2024-03-02 11:30] LABS: Anion Gap 6 mmol/L (4-12); Blood Urea Nitrogen 17 mg/dL (9-20); Carbon Dioxide 26 mmol/L (22-30); Chloride 96 mmol/L (98-107); Estimated Glomerular Filt Rate > 60; Glucose 183 mg/dL (65-110); Potassium 4.1 mmol/L (3.4-5.0); Sodium 128 mmol/L (137-145)
--- NOTE | 2024-03-02 11:52 | PM.CNCAR ---
Assessment and Plan Assessment and plan (1) Symptomatic bradycardia: Code(s): R00.1 - Bradycardia, unspecified Status: Acute Plan Symptomatic bradycardia in addition likely secondary to hyperkalemia and medications Acute kidney injury on presentation of hyperkalemia likely related to hypovolemia and bradycardia History of TIA Hypertension, controlled Plan Replace lisinopril, beta-moy and spironolactone with amlodipine Amlodipine would be started when the blood pressure is stable and stable 140 History of Present Illness History of Present Illness Consult date/time: 03/02/24 11:52 Reason For Visit: Hyperk/Bradyarrhythmia Narrative: present to the hospital because of episode of weakness easy fatigue and altered mental status with dizziness that happened yesterday. On arrival to the ED the patient was noted to have bradycardia along with hyperkalemia. He was also noted to have acute kidney injury which was likely due to hypovolemia. He was given IV fluids and antihypertensive medication was held. Overnight patient has been improving his heart rate back to normal. Review of Systems Review of Systems: All systems reviewed & are unremarkable except as noted in HPI and below PMFSH Past Medical History Medical History Asymptomatic bilateral carotid artery stenosis Atherosclerosis of [place] arteries of extremities with intermittent claudication, bilateral legs Bronchiectasis Dementia Dysphagia Essential (primary) hypertension Gastro-esophageal reflux disease without esophagitis Hypoparathyroidism Irritable bowel syndrome with diarrhea Mixed hyperlipidemia ISMA (obstructive sleep apnea) Does not use CPAP TIA (transient ischemic attack) Type 2 diabetes mellitus with diabetic autonomic (poly)neuropathy Surgical History Surgical History History of back surgery X-2 History of hernia repair Hx of cholecystectomy Status post arthroscopic surgery of left knee Family History Family History Sibling Hypertension Acute myocardial infarction Mother Patient's mother is , Onset Age: 57 Heart disease CHF (congestive heart failure) Family history of obesity Father Dementia Cerebrovascular accident Other Diabetes mellitus Social History Social History (Updated 03/02/24 @ 08:54 by Lilli Barnes DO) Social History: Patient lives with his of over 60 years. They raised 3 sons. He was drafted into the [employer] for 2 years in the 1950s. He smoked a pack of cigarettes per day for about 25 years but quit in the . He denies any significant alcohol use or illicit substance use. Code status: No CPR, no intubation, patient would be okay with synchronized cardioversion or cardioversion in the event of unstable V-tach but if this were not to help his rhythm he would not want further resuscitation. Surrogate decision maker: Years smoked: 15 Smoking status: Former smoker Tobacco type: cigarettes Second hand tobacco smoke exposure: No Smoking end date: 10/16/69 Alcohol intake: current Drinks per week: 7 Substance use: never Substance use type: does not use Do You Feel Safe in your Home?: Yes Lack of Transportation: No Lack of Food: Never True Current Housing: I Have Housing Concerned About Future Housing: No Difficulty Paying Gas/Electric Bills: No Difficulty Paying for Meds: No Currently Unemployed: No Education: Bachelor's Degree Difficulty w/ Childcare or Family Care: No Living arrangements: with family Occupation/Education: retired Gender identity (if verbalized by the patient): Male Sexual Orientation (if Verbalized by the Patient): Straight or Heterosexual Spiritual care concerns: No Agree to blood products: Yes Meds Home Medications and
[2024-03-02 11:58] LABS: Glucose Point of Care 195 mg/dl (65-105)
--- NOTE | 2024-03-02 13:20 | P.CONNP_ITS ---
Assessment and Plan Assessment and plan (1) Hyponatremia: Code(s): E87.1 - Hypo-osmolality and hyponatremia Status: Acute Assessment and Plan: * acute on chronic * sodium seems to run ~ 131 - 136mmol/L since 2021 * admission sodium 120mmol/L * suspicion falls on volume depletion given favoralble response to IVFs overnight * evidence of overcorrection noted: * sodium went from 120 to 130mmol/L in 14 hours (depite fluid adjustments overnight) * however, overcorrection reversed with use of D5W fluid bolus this AM * goal of therapy to keep sodium ~ 128mmol till 2:00PM today (a change of 8mmolL in 24 hours) * for completeness, check TSH, cortisol, SPEP, and UPEP * continue IVFs and wean off as oral intake improves * follow trend of repeat sodium levels (2) Acute kidney injury: Code(s): N17.9 - Acute kidney failure, unspecified Status: Acute Assessment and Plan: * resolved as noted by AM labs * suspect an element of volume depletion worsened by bradycardia (and associated renal hypoperfusion) with possible contributions from NSAID (diclofenac) use * hold off on further testing at this time given improvement in renal function * follow trend of repeat labs and UOP (3) Hyperkalemia: Code(s): E87.5 - Hyperkalemia Status: Acute Assessment and Plan: * resolved * multifactorial: * ROSA MARIA/ARF * medications (DELVIN-I + spironolactone) * bradycardia * volume depletion * s/p medical management and IVFs * holding DELVIN-I and spironolactone for now * follow repeat K+ levels (4) Symptomatic bradycardia: Code(s): R00.1 - Bradycardia, unspecified Status: Acute Assessment and Plan: * as noted on admission * presumably precipitated by multiple rate controlling medications (cardizem and propranolol) and likely worsened by ROSA MARIA and associated hyperkalemia * with resolution of hyperkalemia, patient's heart rate normalized * Cardiology recommendations noted * continue supportive therapy (5) Essential (primary) hypertension: Code(s): I10 - Essential (primary) hypertension Status: Chronic Assessment and Plan: * reasonable control at this time * follow trend of hemodynamics (6) Diabetes: Code(s): E11.9 - Type 2 diabetes mellitus without complications Status: Chronic Assessment and Plan: * follow accu-cheks * glycemic control per hospitalists I will continue follow the patient with you while he remains hospitalized and make further recommendations as deemed necessary. Thank you for allowing me to participate in the care of this patient. History of Present Illness Reason for Consult Consult date: 03/02/24 Reason for consult: acute renal failure, hyponatremia and hyperkalemia Chief Complaint Chief complaint: Hyperk/Bradyarrhythmia History of Present Illness Narrative: The patient is an 88-year-old male with a past medical history as outlined below who presented to [facility] Emergency room with an unresponsive episode. The patient states that he was sitting in his recliner at home and per his , when she went to check on him, he was unresponsive. The patient repaired remembers his shaking him awake on a prior to EMS arrival. Per EMS documentation, his heart rate was in the 30s in the field and external pacemaker was placed until his arrival to the emergency room. On arrival to the emergency room, he was still bradycardic with reported heart rate still in the 30s. Routine blood test done at that time d
--- NOTE | 2024-03-02 13:20 | PM.CNNEP ---
Assessment and Plan Assessment and plan (1) Hyponatremia: Code(s): E87.1 - Hypo-osmolality and hyponatremia Status: Acute Assessment and Plan: acute on chronic sodium seems to run ~ 131 - 136mmol/L since 2021 admission sodium 120mmol/L suspicion falls on volume depletion given favoralble response to IVFs overnight evidence of overcorrection noted: sodium went from 120 to 130mmol/L in 14 hours (depite fluid adjustments overnight) however, overcorrection reversed with use of D5W fluid bolus this AM goal of therapy to keep sodium ~ 128mmol till 2:00PM today (a change of 8mmolL in 24 hours) for completeness, check TSH, cortisol, SPEP, and UPEP continue IVFs and wean off as oral intake improves follow trend of repeat sodium levels (2) Acute kidney injury: Code(s): N17.9 - Acute kidney failure, unspecified Status: Acute Assessment and Plan: resolved as noted by AM labs suspect an element of volume depletion worsened by bradycardia (and associated renal hypoperfusion) with possible contributions from NSAID (diclofenac) use hold off on further testing at this time given improvement in renal function follow trend of repeat labs and UOP (3) Hyperkalemia: Code(s): E87.5 - Hyperkalemia Status: Acute Assessment and Plan: resolved multifactorial: ROSA MARIA/ARF medications (DELVIN-I + spironolactone) bradycardia volume depletion s/p medical management and IVFs holding DELVIN-I and spironolactone for now follow repeat K+ levels (4) Symptomatic bradycardia: Code(s): R00.1 - Bradycardia, unspecified Status: Acute Assessment and Plan: as noted on admission presumably precipitated by multiple rate controlling medications (cardizem and propranolol) and likely worsened by ROSA MARIA and associated hyperkalemia with resolution of hyperkalemia, patient's heart rate normalized Cardiology recommendations noted continue supportive therapy (5) Essential (primary) hypertension: Code(s): I10 - Essential (primary) hypertension Status: Chronic Assessment and Plan: reasonable control at this time follow trend of hemodynamics (6) Diabetes: Code(s): E11.9 - Type 2 diabetes mellitus without complications Status: Chronic Assessment and Plan: follow accu-cheks glycemic control per hospitalists I will continue follow the patient with you while he remains hospitalized and make further recommendations as deemed necessary. Thank you for allowing me to participate in the care of this patient. History of Present Illness Reason for Consult Consult date: 03/02/24 Reason for consult: acute renal failure, hyponatremia and hyperkalemia Chief Complaint Chief complaint: Hyperk/Bradyarrhythmia History of Present Illness Narrative: The patient is an 88-year-old male with a past medical history as outlined below who presented to [facility] Emergency room with an unresponsive episode. The patient states that he was sitting in his recliner at home and per his , when she went to check on him, he was unresponsive. The patient repaired remembers his shaking him awake on a prior to EMS arrival. Per EMS documentation, his heart rate was in the 30s in the field and external pacemaker was placed until his arrival to the emergency room. On arrival to the emergency room, he was still bradycardic with reported heart rate still in the 30s. Routine blood test done at that time demonstrated evidence of hyperkalemia in association with acute kidney injury/acute renal failure as well as acute hyponatremia. He received medical management for the hyperkalemia and the form of IV dextrose, calcium, insulin, and locale a with subsequent improvement in his heart rate and improvement in his mentation as well. However, he did become acutely hypoglycemic presumably with the use of IV insulin but this stabilized with additional IV
[2024-03-02 15:01] LABS: Sodium 127 mmol/L (137-145)
[2024-03-02] MEDS: SODIUM CHLORIDE 0.9% IV 1,000 ML 60 ML IV CONT (15:34)
[2024-03-02 15:44] LABS: Glucose Point of Care 109 mg/dl (65-105)
--- NOTE | 2024-03-02 15:55 | PC.NURSE ---
pt moved to room 204 nearer to nurses station safety precaution
--- NOTE | 2024-03-02 17:18 | PM.IMPN ---
Progress Note: A&P Assessment and Plan (1) Transaminitis: Code(s): R74.01 - Elevation of levels of liver transaminase levels Status: Acute (2) Essential (primary) hypertension: Code(s): I10 - Essential (primary) hypertension Status: Acute (3) Symptomatic bradycardia: Code(s): R00.1 - Bradycardia, unspecified Status: Acute (4) Acute kidney injury: Code(s): N17.9 - Acute kidney failure, unspecified Status: Acute (5) Acute hyperkalemia: Code(s): E87.5 - Hyperkalemia Status: Acute (6) Altered mental status: Qualifiers: Altered mental status type: transient alteration of awareness Qualified Code(s): R40.4 - Transient alteration of awareness Code(s): R41.82 - Altered mental status, unspecified Status: Acute (7) Hyponatremia: Code(s): E87.1 - Hypo-osmolality and hyponatremia Status: Acute Plan Discontinue Cardizem and propanolol. Continue on telemetry and continue to appreciate Cardiology recommendations. Start amlodipine if the patient's blood pressure is elevated. Consult PT OT for weakness. Workup and management of hyponatremia per Nephrology. Repeat BMP at 9:30 p.m.. Continue Accu-Cheks to monitor for previous hypoglycemia. Heparin subQ. Normal saline IV. Patient elects to be DNR. The confirms this. Subjective Date/time seen: 03/02/24 17:18 Interval history: No acute overnight events. The is at the bedside. The patient is complaining that he wants to go home in the is rejecting that. Otherwise has no complaints. The reports he is too weak and cannot walk. Review of Systems Review of Systems: All systems reviewed & are unremarkable except as noted in HPI and below (Subjective) Exam Const: General: comfortable and no acute distress Other: A&O x2 Eyes: Pupils: Equal, round and reactive pupils present Neck: Neck: supple Resp: Effort & Inspection: normal respiratory effort Auscultation: clear to auscultation bilaterally Cardio: Rate: regular rate Rhythm: regular rhythm GI: GI Palp: Yes Soft to palpation and No Tenderness to palpation present (GI) Extrem: General: no edema Objective Data Vital Signs Vital Signs: Vital Signs - 24 hr 03/01/24 19:40 03/01/24 19:40 03/01/24 22:02 Temperature 98 F Pulse Rate 58 L 58 L 67 Respiratory Rate 16 16 Blood Pressure 117/52 L 112/67 Pulse Oximetry 100 100 Oxygen Delivery Fraction of Inspired Oxygen 03/01/24 22:00 03/01/24 22:00 03/01/24 23:49 Temperature 97.6 F 97.4 F L Pulse Rate 63 65 69 Respiratory Rate 16 16 Blood Pressure 125/42 L 101/44 L Pulse Oximetry 97 94 Oxygen Delivery Fraction of Inspired Oxygen 03/02/24 00:00 03/02/24 01:59 03/02/24 04:26 Temperature 97.2 F L Pulse Rate 75 66 73 Respiratory Rate 16 Blood Pressure 126/56 L Pulse Oximetry 99 Oxygen Delivery Fraction of Inspired Oxygen 03/02/24 04:00 03/02/24 04:00 03/02/24 05:38 Temperature Pulse Rate 79 79 65 Respiratory Rate 16 Blood Pressure Pulse Oximetry 99 Oxygen Delivery Room Air Fraction of Inspired Oxygen 03/02/24 07:51 03/02/24 08:48 03/02/24 10:01 Temperature 98.2 F Pulse Rate 72 67 Respiratory Rate 16 Blood Pressure 103/75 Pulse Oximetry 99 99 Oxygen Delivery Room Air Fraction of Inspired Oxygen 21 03/02/24 12:00 03/02/24 08:45 03/02/24 10:00 Temperature 98.6 F Pulse Rate 45 L 80 69 Respiratory Rate 16 Blood Pressure 108/47 L Pulse Oximetry 99 Oxygen Delivery Fraction of Inspired Oxygen 03/02/24 12:30 03/02/24 14:00 Temperature Pulse Rate 50 L 62 Respiratory Rate Blood Pressure Pulse Oximetry Oxygen Delivery Fraction of Inspired Oxygen Intake/Output Intake/Output: Intake & Output 02/28/24 02/29/24 03/01/24 03/02/24 23:59 23:59 23:59 23:59 Intake Total 1000 1710 Output Total 1500 Randy
[2024-03-02 18:10] LABS: Creatinine Urine 25.7 mg/dL; Total Protein Urine Random 15 mg/dL; Ur Ttl Prot Creatinine Ratio 0.58 mg/mg (0-0.20); Urea Random Urine 221 MG/DL
[2024-03-02 18:17] LABS: Sodium Urine Random 48 meq/L
[2024-03-02] MEDS: traZODone HCL 50 MG TABLET PO (20:39)
[2024-03-02 20:51] LABS: Glucose Point of Care 110 mg/dl (65-105)
[2024-03-02 21:40] LABS: Sodium 128 mmol/L (137-145)
[2024-03-02 23:35] LABS: Glucose Point of Care 117 mg/dl (65-105)
[2024-03-03] VITALS (13 sets, daily range): BP systolic 138–167; BP diastolic 60–81; PULSE 71–90; RESP 16–20; TEMP 36.4–37.1; O2SAT 96–100; BMI 25.4
[2024-03-03 04:17] LABS: Glucose Point of Care 109 mg/dl (65-105)
[2024-03-03 04:23] LABS: Basophils Percent Auto 0.3 % (0.2-1.2); Eosinophils Absolute Auto 0.1 K/mm3 (0-0.3); Eosinophils Percent Auto 1.6 % (0-4.4); Hemoglobin 11.4 g/dL (14.0-18.0); Immature Granulocyte Absolute 0.04 K/mm3 (0.00-0.031); Immature Granulocyte Percent A 0.5 % (0-0.5); Lymphocytes Absolute Auto 1.37 K/mm3 (0.9-3.2); Lymphocytes Percent Auto 15.7 % (18.3-44.2); Mean Corpuscular HGB Conc 34.5 g/dl (32-36); Mean Corpuscular Hemoglobin 32.5 pg (26-34); Mean Platelet Volume 10.1 fl (7.4-10.4); Monocytes Percent Auto 11.7 % (2.6-8.5); Neutrophils Absolute Auto 6.1 K/mm3 (1.3-6.7); Neutrophils Percent Auto 70.2 % (45.5-73.1); Platelet Count Result 206 k/mm3 (150-375); Red Blood Count 3.51 M/mm3 (4.6-6.20); White Blood Count 8.7 K/mm3 (4.5-10.0)
[2024-03-03 04:51] LABS: Alanine Aminotransferase 94 U/L (6-50); Albumin Level 3.6 g/dL (3.5-5.1); Alkaline Phosphatase 78 U/L (38-126); Anion Gap 4 mmol/L (4-12); Aspartate Amino Transferase 42 U/L (17-59); Bilirubin,Total 0.4 mg/dL (0.2-1.3); Blood Urea Nitrogen 10 mg/dL (9-20); Calcium 8.9 mg/dL (8.4-10.2); Carbon Dioxide 28 mmol/L (22-30); Chloride 100 mmol/L (98-107); Estimated Glomerular Filt Rate > 60; Glucose 100 mg/dL (65-110); Magnesium 1.3 mg/dL (1.6-2.3); Potassium 3.9 mmol/L (3.4-5.0); Sodium 132 mmol/L (137-145)
[2024-03-03 05:17] LABS: Cortisol Random 9.35 ug/dL
[2024-03-03 05:26] LABS: Procalcitonin 0.1 ng/mL
[2024-03-03 07:59] LABS: Glucose Point of Care 111 mg/dl (65-105)
[2024-03-03] MEDS: AMOXICILLIN/CLAVULANATE K 875-125 MG TAB 1 TABLET PO ×2 (08:46→16:40)
[2024-03-03] MEDS: GABAPENTIN 300 MG CAPSULE 600 MG PO ×2 (08:46→16:40)
[2024-03-03] MEDS: metFORMIN HCL 500 MG TABLET 1000 MG PO ×2 (08:46→16:40)
[2024-03-03] MEDS: CLOPIDOGREL BISULFATE 75 MG TABLET PO (08:46)
[2024-03-03] MEDS: ASPIRIN 81 MG ENTERIC TABLET PO (08:47)
[2024-03-03] MEDS: HEPARIN SODIUM 5,000 UNITS/ML VIAL 5000 UNITS SUB-Q ×2 (08:48→20:28)
[2024-03-03] MEDS: MAGNESIUM OXIDE 400 MG TABLET PO ×2 (08:58→14:09)
[2024-03-03] MEDS: SODIUM CHLORIDE 0.9% IV 1,000 ML 60 ML IV CONT (08:58)
--- NOTE | 2024-03-03 11:37 | P.PNNP_ITS ---
Progress Note: A&P Assessment and Plan (1) Hyponatremia: Code(s): E87.1 - Hypo-osmolality and hyponatremia Status: Acute Assessment and Plan: * slow improvement * acute on chronic * sodium seems to run ~ 131 - 136mmol/L since 2021 * admission sodium 120mmol/L * suspicion falls on volume depletion given favorable response to IVFs * evidence of overcorrection noted on admission * sodium went from 120 to 130mmol/L in 14 hours (depite fluid adjustments overnight) * however, overcorrection reversed with use of D5W fluid bolus this AM * goal of therapy to keep sodium ~ 128mmol till 2:00PM yesterday (a change of 8mmolL in 24 hours) - this was achieved... * evaluation noted * TSH okay * cortisol on the lower end of normal - consider stim test * urine electrolytes * SPEP/UPEP pending * urine electrolyes non-prerenal * continue IVFs and wean off as oral intake improves * follow trend of repeat sodium levels (2) Acute kidney injury: Code(s): N17.9 - Acute kidney failure, unspecified Status: Acute Assessment and Plan: * resolved * suspect an element of volume depletion worsened by bradycardia (and associated renal hypoperfusion) with possible contributions from NSAID (diclofenac) use * hold off on further testing at this time given improvement in renal function * follow trend of repeat labs and UOP (3) Hyperkalemia: Code(s): E87.5 - Hyperkalemia Status: Acute Assessment and Plan: * resolved * multifactorial: * ROSA MARIA/ARF * medications (DELVIN-I + spironolactone) * bradycardia * volume depletion * s/p medical management and IVFs * holding DELVIN-I and spironolactone for now * follow repeat K+ levels (4) Symptomatic bradycardia: Code(s): R00.1 - Bradycardia, unspecified Status: Acute Assessment and Plan: * as noted on admission * presumably precipitated by multiple rate controlling medications (cardizem and propranolol) and likely worsened by ROSA MARIA and associated hyperkalemia * with resolution of hyperkalemia, patient's heart rate normalized * Cardiology recommendations noted * continue supportive therapy (5) Essential (primary) hypertension: Code(s): I10 - Essential (primary) hypertension Status: Chronic Assessment and Plan: * reasonable control at this time * follow trend of hemodynamics (6) Diabetes: Code(s): E11.9 - Type 2 diabetes mellitus without complications Status: Chronic Assessment and Plan: * follow accu-cheks * glycemic control per hospitalists Will continue to follow. Subjective Date/time seen: 03/03/24 11:37 Interval history: Follow-up for acute on chronic hyponatremia, acute kidney injury/acute renal f ailure, and hyperkalemia. Renal function and potassium levels have remained stable and sodium level has been slowly improbing if not stabilizing with current interventions/therapy; no apparent distress noted; not eating very much but reports does not like the food here. Exam Narrative: General: elderly but WD/WN male n NAD Heart: normal S1 and S2; no rub Lungs: clear to auscultation Abdomen: soft, nontender, nondistended, positive bowel sounds Extremities: no cyanosis or clubbing; no edema Skin: warm and dry Objective Data Vital Signs Vital Signs: Vital Signs Temp Pulse Resp
--- NOTE | 2024-03-03 11:37 | PM.PNNEP ---
Progress Note: A&P Assessment and Plan (1) Hyponatremia: Code(s): E87.1 - Hypo-osmolality and hyponatremia Status: Acute Assessment and Plan: slow improvement acute on chronic sodium seems to run ~ 131 - 136mmol/L since 2021 admission sodium 120mmol/L suspicion falls on volume depletion given favorable response to IVFs evidence of overcorrection noted on admission sodium went from 120 to 130mmol/L in 14 hours (depite fluid adjustments overnight) however, overcorrection reversed with use of D5W fluid bolus this AM goal of therapy to keep sodium ~ 128mmol till 2:00PM yesterday (a change of 8mmolL in 24 hours) - this was achieved... evaluation noted TSH okay cortisol on the lower end of normal - consider stim test urine electrolytes SPEP/UPEP pending urine electrolyes non-prerenal continue IVFs and wean off as oral intake improves follow trend of repeat sodium levels (2) Acute kidney injury: Code(s): N17.9 - Acute kidney failure, unspecified Status: Acute Assessment and Plan: resolved suspect an element of volume depletion worsened by bradycardia (and associated renal hypoperfusion) with possible contributions from NSAID (diclofenac) use hold off on further testing at this time given improvement in renal function follow trend of repeat labs and UOP (3) Hyperkalemia: Code(s): E87.5 - Hyperkalemia Status: Acute Assessment and Plan: resolved multifactorial: ROSA MARIA/ARF medications (DELVIN-I + spironolactone) bradycardia volume depletion s/p medical management and IVFs holding DELVIN-I and spironolactone for now follow repeat K+ levels (4) Symptomatic bradycardia: Code(s): R00.1 - Bradycardia, unspecified Status: Acute Assessment and Plan: as noted on admission presumably precipitated by multiple rate controlling medications (cardizem and propranolol) and likely worsened by ROSA MARIA and associated hyperkalemia with resolution of hyperkalemia, patient's heart rate normalized Cardiology recommendations noted continue supportive therapy (5) Essential (primary) hypertension: Code(s): I10 - Essential (primary) hypertension Status: Chronic Assessment and Plan: reasonable control at this time follow trend of hemodynamics (6) Diabetes: Code(s): E11.9 - Type 2 diabetes mellitus without complications Status: Chronic Assessment and Plan: follow accu-cheks glycemic control per hospitalists Will continue to follow. Subjective Date/time seen: 03/03/24 11:37 Interval history: Follow-up for acute on chronic hyponatremia, acute kidney injury/acute renal failure, and hyperkalemia. Renal function and potassium levels have remained stable and sodium level has been slowly improbing if not stabilizing with current interventions/therapy; no apparent distress noted; not eating very much but reports does not like the food here. Exam Narrative: General: elderly but WD/WN male n NAD Heart: normal S1 and S2; no rub Lungs: clear to auscultation Abdomen: soft, nontender, nondistended, positive bowel sounds Extremities: no cyanosis or clubbing; no edema Skin: warm and dry Objective Data Vital Signs Vital Signs: Vital Signs Temp Pulse Resp BP Pulse Ox O2 Del Method 03/03/24 11:30 98.1 F 85 16 154/72 H 100 03/03/24 10:00 81 03/03/24 08:00 76 03/03/24 08:00 Room Air 03/03/24 08:41 Room Air 03/03/24 07:29 98.5 F 78 16 143/60 H 98 03/03/24 05:54 71 03/03/24 04:00 72 03/03/24 04:00 98.8 F 77 18 138/69 96 03/03/24 03:21 Room Air 03/03/24 01:56 81 03/02/24 21:53 97 Room Air 03/03/24 00:00 77 03/03/24 00:00 Room Air 03/03/24 00:00 97.8 F 79 20 148/74 H 97 03/02/24 22:00 79 03/02/24 20:00 73 03/02/24 20:00 98.0 F 73 18 157/78 H 100
[2024-03-03 12:54] LABS: Glucose Point of Care 105 mg/dl (65-105)
--- NOTE | 2024-03-03 13:50 | PM.IMPN ---
Progress Note: A&P Assessment and Plan (1) Transaminitis: Code(s): R74.01 - Elevation of levels of liver transaminase levels Status: Acute (2) Essential (primary) hypertension: Code(s): I10 - Essential (primary) hypertension Status: Chronic (3) Symptomatic bradycardia: Code(s): R00.1 - Bradycardia, unspecified Status: Acute (4) Acute kidney injury: Code(s): N17.9 - Acute kidney failure, unspecified Status: Acute (5) Acute hyperkalemia: Code(s): E87.5 - Hyperkalemia Status: Acute (6) Altered mental status: Qualifiers: Altered mental status type: transient alteration of awareness Qualified Code(s): R40.4 - Transient alteration of awareness Code(s): R41.82 - Altered mental status, unspecified Status: Acute (7) Hyponatremia: Code(s): E87.1 - Hypo-osmolality and hyponatremia Status: Acute Plan Discontinue Cardizem and propanolol. Continue on telemetry and continue to appreciate Cardiology recommendations. Start amlodipine if the patient's blood pressure is elevated. Consult PT OT for weakness. Workup and management of hyponatremia per Nephrology. Repeat BMP at 9:30 p.m.. Continue Accu-Cheks to monitor for previous hypoglycemia. March 03: His heart rate has obtained between 60 and 90 since the Cardizem and propanolol have been held. Continue to hold and appreciate Cardiology recommendations. His sodium is up,. We have a repeat pending and Nephrology is managing. Speech therapy consulted. He had been choking at home. Heparin subQ. Normal saline IV. Patient elects to be DNR. The confirms this. Home when Cardiology and Nephrology are okay and his diet and speech therapy have been sorted out. Physical therapy recommending home health therapy. He is feeling a bit stronger. Subjective Date/time seen: 03/03/24 13:50 Interval history: No acute overnight events. The reports the patient has been choking while eating at home. They deny any other complaints. Review of Systems Review of Systems: All systems reviewed & are unremarkable except as noted in HPI and below (Subjective) Exam Const: General: comfortable and no acute distress Eyes: Pupils: Equal, round and reactive pupils present Neck: Neck: supple Resp: Effort & Inspection: normal respiratory effort Auscultation: clear to auscultation bilaterally Cardio: Rate: regular rate Rhythm: regular rhythm GI: GI Palp: Yes Soft to palpation and No Tenderness to palpation present (GI) Extrem: General: no edema Objective Data Vital Signs Vital Signs: Vital Signs - 24 hr 03/02/24 14:00 03/02/24 16:00 03/02/24 16:40 Temperature 98.6 F Pulse Rate 62 71 65 Respiratory Rate 20 Blood Pressure 116/43 L Pulse Oximetry 100 Oxygen Delivery 03/02/24 18:00 03/02/24 20:00 03/02/24 20:00 Temperature 98.0 F Pulse Rate 66 73 73 Respiratory Rate 18 Blood Pressure 157/78 H Pulse Oximetry 100 Oxygen Delivery 03/02/24 22:00 03/03/24 00:00 03/03/24 00:00 Temperature 97.8 F Pulse Rate 79 79 Respiratory Rate 20 Blood Pressure 148/74 H Pulse Oximetry 97 Oxygen Delivery Room Air 03/03/24 00:00 03/02/24 21:53 03/03/24 01:56 Temperature Pulse Rate 77 81 Respiratory Rate Blood Pressure Pulse Oximetry 97 Oxygen Delivery Room Air 03/03/24 03:21 03/03/24 04:00 03/03/24 04:00 Temperature 98.8 F Pulse Rate 77 72 Respiratory Rate 18 Blood Pressure 138/69 Pulse Oximetry 96 Oxygen Delivery Room Air 03/03/24 05:54 03/03/24 07:29 03/03/24 08:41 Temperature 98.5 F Pulse Rate 71 78 Respiratory Rate 16 Blood Pressure 143/60 H Pulse Oximetry 98 Oxygen Delivery Room Air 03/03/24 08:00 03/03/24 08:00 03/03/24 10:00 Temperature Pulse Rate 76 81 Respiratory Rate Blood Pressure Pulse Oximetry Oxygen Delivery Room Air 03/03/24 11:41 05
--- NOTE | 2024-03-03 15:50 | PCSTNOTE ---
Bedside swallowing evaluation completed. Patient seen bedside with head of bed elevated to achieve maximum upright positioning. Spouse present at bedside. 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 Trials of thin liquid by straw, pureed consistency by spoon, and solid consistency (bite of deborah cracker) were given and patient demonstrated no difficulty with any of these. No signs of aspiration or other difficulties were observed. Patient and spouse report that he has the most difficulty with eating meats because of the density of the bolus. Given that patient has a reported history of swallowing difficulty, a modified barium swallow study is recommended to evaluate further. Until this can be completed, a soft bite sized diet with thin liquids is recommended. Swallowing precaution recommendations include: upright position when eating or drinking, small bites/sips, soft bite sized diet, straws ok, do not talk when eating/drinking, frequent observation by nursing. Thank you for the referral of this patient.
[2024-03-03 16:25] LABS: Anion Gap 6 mmol/L (4-12); Blood Urea Nitrogen 10 mg/dL (9-20); Carbon Dioxide 28 mmol/L (22-30); Chloride 98 mmol/L (98-107); Estimated CRCL calculation 65 ml/min; Estimated Glomerular Filt Rate > 60; Glucose 124 mg/dL (65-110); Sodium 132 mmol/L (137-145)
[2024-03-03 17:45] LABS: Glucose Point of Care 104 mg/dl (65-105)
[2024-03-03] MEDS: traZODone HCL 50 MG TABLET PO (20:28)
[2024-03-03 22:00] LABS: Glucose Point of Care 111 mg/dl (65-105)
[2024-03-04] VITALS: PULSE 82
[2024-03-04 04:00] VITALS: PULSE 76
[2024-03-04 04:39] VITALS: BP 153/68; PULSE 86; RESP 20; TEMP 37; O2SAT 98
[2024-03-04 05:50] LABS: Basophils Percent Auto 0.1 % (0.2-1.2); Eosinophils Absolute Auto 0.2 K/mm3 (0-0.3); Eosinophils Percent Auto 2.2 % (0-4.4); Hematocrit 34.1 % (42.0-52.0); Hemoglobin 11.6 g/dL (14.0-18.0); Immature Granulocyte Absolute 0.03 K/mm3 (0.00-0.031); Immature Granulocyte Percent A 0.4 % (0-0.5); Lymphocytes Absolute Auto 1.23 K/mm3 (0.9-3.2); Lymphocytes Percent Auto 15.2 % (18.3-44.2); Mean Corpuscular Volume 93.9 fl (80-100); Mean Platelet Volume 9.7 fl (7.4-10.4); Monocytes Absolute Auto 0.9 K/mm3 (0.1-0.6); Monocytes Percent Auto 11.5 % (2.6-8.5); Neutrophils Absolute Auto 5.7 K/mm3 (1.3-6.7); Neutrophils Percent Auto 70.6 % (45.5-73.1); Platelet Count Result 227 k/mm3 (150-375); Red Blood Count 3.63 M/mm3 (4.6-6.20); Red Cell Distribution Width 11.9 % (11.5-14.5); White Blood Count 8.1 K/mm3 (4.5-10.0)
[2024-03-04 06:08] LABS: Alanine Aminotransferase 64 U/L (6-50); Albumin Level 3.8 g/dL (3.5-5.1); Alkaline Phosphatase 75 U/L (38-126); Anion Gap 5 mmol/L (4-12); Aspartate Amino Transferase 29 U/L (17-59); Bilirubin,Total 0.4 mg/dL (0.2-1.3); Blood Urea Nitrogen 8 mg/dL (9-20); Calcium 8.8 mg/dL (8.4-10.2); Carbon Dioxide 25 mmol/L (22-30); Chloride 101 mmol/L (98-107); Estimated CRCL calculation 65 ml/min; Estimated Glomerular Filt Rate > 60; Glucose 101 mg/dL (65-110); Potassium 3.9 mmol/L (3.4-5.0); Sodium 131 mmol/L (137-145)
[2024-03-04] MEDS: metFORMIN HCL 500 MG TABLET 1000 MG PO (08:26)
[2024-03-04 08:33] LABS: Glucose Point of Care 104 mg/dl (65-105)
[2024-03-04] MEDS: ASPIRIN 81 MG ENTERIC TABLET PO (09:08)
[2024-03-04] MEDS: CLOPIDOGREL BISULFATE 75 MG TABLET PO (09:08)
[2024-03-04] MEDS: AMOXICILLIN/CLAVULANATE K 875-125 MG TAB 1 TABLET PO (09:08)
[2024-03-04] MEDS: GABAPENTIN 300 MG CAPSULE 600 MG PO (09:08)
[2024-03-04] MEDS: HEPARIN SODIUM 5,000 UNITS/ML VIAL 5000 UNITS SUB-Q (09:09)
--- NOTE | 2024-03-04 09:26 | PCSTNOTE ---
Please refer to the Modified Barium Swallow Evaluation in the EMR.
[2024-03-04 11:59] LABS: Glucose Point of Care 124 mg/dl (65-105)
[2024-03-04 12:40] VITALS: BMI 24.5
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
[2024-03-05 14:08] LABS: Creatinine, Random Urine 143 mg/dL (20-320); Total Protein/Creatinine Ratio 168 mg/g creat (25-148)
== END 2024-03-04 14:38 | DRG 641 ==
LOC: ANHED 14:30 → ANH3MEDSUR 17:30 → ANHIMU 21:29 → ANH3MED 03-03 19:57
PROVIDERS: Internal Medicine; Internal Medicine Nephrology; Student in an Organized Health Care Education/Training Program; Admitting Provider General Practice; Emergency Provider Emergency Medicine; PCP Family Medicine Adolescent Medicine; Visit Provider General Practice
DX: E87.5 Hyperkalemia (principal); N17.9 Acute kidney failure, unspecified; R00.1 Bradycardia, unspecified; E87.1 Hypo-osmolality and hyponatremia; E86.0 Dehydration; I65.23 Occlusion and stenosis of bilateral carotid arteries; I70.213 Atherosclerosis of native arteries of extremities with intermittent claudication, bilateral legs; I10 Essential (primary) hypertension; E11.43 Type 2 diabetes mellitus with diabetic autonomic (poly)neuropathy; E11.51 Type 2 diabetes mellitus with diabetic peripheral angiopathy without gangrene; E20.9 Hypoparathyroidism, unspecified; E78.2 Mixed hyperlipidemia; K58.0 Irritable bowel syndrome with diarrhea; K21.9 Gastro-esophageal reflux disease without esophagitis; R13.10 Dysphagia, unspecified; G47.33 Obstructive sleep apnea (adult) (pediatric); F03.90 Unspecified dementia, unspecified severity, without behavioral disturbance, psychotic disturbance, mood disturbance, and anxiety; Z86.73 Personal history of transient ischemic attack (TIA), and cerebral infarction without residual deficits; Z87.891 Personal history of nicotine dependence; Z79.82 Long term (current) use of aspirin; Z79.02 Long term (current) use of antithrombotics/antiplatelets
CPT/HCPCS: 36415; 70450; 71045; 80048; 80053; 81003; 81050; 82533; 82570; 82948; 83605; 83735; 84145; 84156; 84166; 84295; 84300; 84443; 84484; 84540; 85025; 85027; 92610; 92611; 93005; 96361; 96374; 96375; 97161; 97165; 97530; 97535; 99285; A9270; J0612; J1644; J1815; J7030; J7060; J7070; J7120